=== PATIENT | female | born 1955 | race Hispanic/Latino ===

== ENCOUNTER 2017-10-08 09:28 | Outpatient (CLI) | payer OTHER ==
--- NOTE | 2017-10-09 13:31 | Mammography Report ---
BILATERAL DIGITAL SCREENING MAMMOGRAM with CAD: 10/08/17 09:28:00 CLINICAL: Routine screening. COMPARISON: 06/25/16 FINDINGS: There are bilateral scattered areas of fibroglandular density.No mass, architectural distortion or suspicious calcifications. IMPRESSION: No mammographic evidence of malignancy. BI-RADS CATEGORY: 1 -- Negative RECOMMENDATION: Routine mammographic screening in one year. COMMENT: Patient follow-up letters are generated by our [employer] application.
== END 2017-10-08 09:29 | disposition home or self-care (01) ==
LOC: SPVWC 09:28
PROVIDERS: ATTEND Internal Medicine
DX: Z12.31 Encounter for screening mammogram for malignant neoplasm of breast (principal)
CPT/HCPCS: 77067; G0202

== ENCOUNTER 2018-06-29 07:45 | Outpatient (CLI) | payer OTHER ==
[2018-06-29] MEDS ORDERED: SILVER NITRATE TP ONE ×2 (09:54→15:33)
[2018-06-29] MEDS ORDERED: SODIUM CHLORIDE FLUSH SYRINGE 10 ML IV ONE (10:14)
== END 2018-06-29 07:46 | disposition home or self-care (01) ==
LOC: WOUND 07:45
PROVIDERS: ATTEND Surgery
DX: I70.235 Atherosclerosis of native arteries of right leg with ulceration of other part of foot (principal); E11.621 Type 2 diabetes mellitus with foot ulcer; L97.512 Non-pressure chronic ulcer of other part of right foot with fat layer exposed; E11.40 Type 2 diabetes mellitus with diabetic neuropathy, unspecified; I25.10 Atherosclerotic heart disease of native coronary artery without angina pectoris; I10 Essential (primary) hypertension; F17.200 Nicotine dependence, unspecified, uncomplicated
CPT/HCPCS: 11042; G0463; 99214

== ENCOUNTER 2018-06-29 11:13 | Outpatient (CLI) | payer OTHER | END 2018-06-29 11:14 | disposition home or self-care (01) | LOC: LAB 11:13 | PROVIDERS: ATTEND Surgery | DX: E11.621 Type 2 diabetes mellitus with foot ulcer (principal); L97.512 Non-pressure chronic ulcer of other part of right foot with fat layer exposed | CPT/HCPCS: 36415; 83036 ==

== ENCOUNTER 2018-07-06 13:02 | Outpatient (CLI) | payer OTHER | END 2018-07-06 13:03 | disposition home or self-care (01) | LOC: WOUND 13:02 | PROVIDERS: ATTEND Surgery | DX: I70.235 Atherosclerosis of native arteries of right leg with ulceration of other part of foot (principal); E11.621 Type 2 diabetes mellitus with foot ulcer; L97.512 Non-pressure chronic ulcer of other part of right foot with fat layer exposed; E11.40 Type 2 diabetes mellitus with diabetic neuropathy, unspecified; I25.10 Atherosclerotic heart disease of native coronary artery without angina pectoris; I10 Essential (primary) hypertension; F17.200 Nicotine dependence, unspecified, uncomplicated ==

== ENCOUNTER 2018-07-14 12:47 | Outpatient (CLI) | payer OTHER | END 2018-07-14 12:48 | disposition home or self-care (01) | LOC: WOUND 12:47 | PROVIDERS: ATTEND Surgery | DX: I70.235 Atherosclerosis of native arteries of right leg with ulceration of other part of foot (principal); E11.621 Type 2 diabetes mellitus with foot ulcer; L97.512 Non-pressure chronic ulcer of other part of right foot with fat layer exposed; E11.40 Type 2 diabetes mellitus with diabetic neuropathy, unspecified; I25.10 Atherosclerotic heart disease of native coronary artery without angina pectoris; I10 Essential (primary) hypertension; F17.200 Nicotine dependence, unspecified, uncomplicated ==

== ENCOUNTER 2018-07-14 14:12 | Outpatient (CLI) | payer OTHER ==
--- NOTE | 2018-07-15 17:12 | Vascular Lab Report ---
LOWER EXTREMITY ARTERIAL DUPLEX: REASON FOR EXAM: Right foot ulcer. COMMENTS ON THE RIGHT: Triphasic waveforms are seen proximally. Triphasic waveforms are seen distally. No significant velocity gradients are identified. No significant plaque is identified. Findings are consistent with normal perfusion. Findings are consistent with the ability to heal distal wounds. COMMENTS ON THE LEFT: Limited study is done of the left inferior triphasic waveforms are seen distally. These findings are within normal limits. IMPRESSION: RIGHT: Essentially normal arterial flow. LEFT:Essentially normal arterial flow.
== END 2018-07-14 14:13 | disposition home or self-care (01) ==
LOC: VAS 14:12
PROVIDERS: ATTEND Surgery
DX: E11.622 Type 2 diabetes mellitus with other skin ulcer (principal); L98.499 Non-pressure chronic ulcer of skin of other sites with unspecified severity

== ENCOUNTER 2018-07-20 11:09 | Outpatient (CLI) | payer OTHER ==
[2018-07-20 12:18] LABS: Blood Urea Nitrogen 11 mg/dL (7-17)
--- NOTE | 2018-07-21 08:00 | Magnetic Resonance Report ---
MR LOWER EXTREMITY NON-JOINT RIGHT WITH AND WITHOUT CONTRAST History: Ulcer of other part of foot. Technique: Multisequence, multiplanar MRI with and without IV gadolinium was performed through the right foot and ankle. Comparison: None at this facility. Findings: A marker is placed on the plantar surface of the foot between metatarsals 3 and 4. There appears to be a shallow skin ulcer in this area. No evidence for abscess. There is mild soft tissue edema and soft tissue enhancement in the distal foot consistent with cellulitis. There is very subtle decreased T1 signal, bone marrow edema and post contrast-enhancement involving the fourth metatarsal head. These findings are consistent with early osteomyelitis. There is no advanced bony destruction or fracture. The remaining bony structures in the visualized ankle and foot are within normal limits. No erosive joint pathology is identified. The musculotendinous structures are intact. IMPRESSION: Cellulitis. Early osteomyelitis of the fourth metatarsal head is suspected.
== END 2018-07-20 11:10 | disposition home or self-care (01) ==
LOC: MRI 11:09
PROVIDERS: ATTEND Surgery
DX: E11.621 Type 2 diabetes mellitus with foot ulcer (principal); L97.512 Non-pressure chronic ulcer of other part of right foot with fat layer exposed; L03.115 Cellulitis of right lower limb
CPT/HCPCS: 36415; 73720; 82565; 84520; A9577

== ENCOUNTER 2018-07-21 10:45 | Outpatient (CLI) | payer OTHER ==
[2018-07-21] MEDS ORDERED: XYLOCAINE TOPICAL 4% TP ONE ×2 (11:13→11:47)
== END 2018-07-21 10:46 | disposition home or self-care (01) ==
LOC: WOUND 10:45
PROVIDERS: ATTEND Surgery
DX: I70.235 Atherosclerosis of native arteries of right leg with ulceration of other part of foot (principal); E11.621 Type 2 diabetes mellitus with foot ulcer; L97.512 Non-pressure chronic ulcer of other part of right foot with fat layer exposed; E11.40 Type 2 diabetes mellitus with diabetic neuropathy, unspecified; I25.10 Atherosclerotic heart disease of native coronary artery without angina pectoris; I10 Essential (primary) hypertension; F17.200 Nicotine dependence, unspecified, uncomplicated

== ENCOUNTER 2018-08-04 13:00 | Outpatient (CLI) | payer OTHER | END 2018-08-04 13:01 | disposition home or self-care (01) | LOC: WOUND 13:00 | PROVIDERS: ATTEND Surgery | DX: I70.235 Atherosclerosis of native arteries of right leg with ulceration of other part of foot (principal); E11.621 Type 2 diabetes mellitus with foot ulcer; L97.512 Non-pressure chronic ulcer of other part of right foot with fat layer exposed; E11.40 Type 2 diabetes mellitus with diabetic neuropathy, unspecified; I25.10 Atherosclerotic heart disease of native coronary artery without angina pectoris; I10 Essential (primary) hypertension; F17.200 Nicotine dependence, unspecified, uncomplicated ==

== ENCOUNTER 2018-08-11 14:33 | Outpatient (CLI) | payer OTHER ==
--- NOTE | 2018-08-11 15:14 | XRay Report ---
ROUTINE CHEST, TWO VIEWS: HISTORY: Osteomyelitis. The trachea, heart, mediastinal contour, lung allen and bony thorax are unremarkable. IMPRESSION: Unremarkable chest x-ray.
== END 2018-08-11 14:34 | disposition home or self-care (01) ==
LOC: XRAY 14:33
PROVIDERS: ATTEND Surgery
DX: M86.8X8 Other osteomyelitis, other site (principal)
CPT/HCPCS: 71046